=== PATIENT | female | born 1990 | race American Indian/Alaskan Native ===

== ENCOUNTER 2020-06-20 15:51 | Emergency (ER) | payer SELFPAY ==
[2020-06-20 17:40] VITALS: BP 130/74
--- NOTE | 2020-06-20 18:41 | Emergency Department Report ---
ED General Adult HPI - General Chief complaint: Extremity Problem,Nontraumatic Stated complaint: LUMP RT BREAST Time Seen by Provider: 06/20/20 18:32 Source: patient Mode of arrival: Ambulatory Limitations: No Limitations - History of Present Illness Initial comments: Patient is a 29-year-old female presents emergency room complaints of a lump to the right breast that began 8 or 9 days ago. She states that she just started using some clotrimazole ointment in the region. She denies any drainage, nipple drainage, fever, nausea, vomiting, diarrhea. She denies being bit by anything or any abrasions. She states that she does use an underwire bra. She denies any nipple bleeding. She states that she last saw an [facility] and October 2019 and was not having any issues at that time. No past medical history. No allergies to medications. She is not breast-feeding. - Related Data Previous Rx's Medication Instructions Recorded Last Taken Type Clotrimazole 1% [Lotrimin 1%] 1 applic TP BID #1 tube 06/20/20 Unknown Rx Doxycycline Hyclate [Doxycycline 100 mg PO BID 7 Days #14 tab 06/20/20 Unknown R x Hyclate TAB] Allergies Allergy/AdvReac Type Severity Reaction Status Date / Time shrimp Allergy Swelling Verified 06/20/20 17:35 sulfamethoxazole Allergy Unknown Verified 06/20/20 19:38 [From Bactrim] trimethoprim [From Bactrim] Allergy Unknown Verified 06/20/20 19:38 CRAB Allergy Swelling Uncoded 06/20/20 17:35 ED Review of Systems ROS: Stated complaint: LUMP RT BREAST Other details as noted in HPI Comment: All other systems reviewed and negative ED Past Medical Hx - Past Medical History Hx Asthma: Yes - Surgical History Additional Surgical History: C SECTION - Medications Home Medications: Home Medications Medication Instructions Recorded Confirmed Last Taken Type Clotrimazole 1% [Lotrimin 1%] 1 applic TP BID #1 tube 06/20/20 Unknown Rx Doxycycline Hyclate [Doxycycline 100 mg PO BID 7 Days #14 tab 06/20/20 Unknown Rx Hyclate TAB] ED Physical Exam - General Limitations: No Limitations General appearance: alert, in no apparent distress - Head Head exam: Present: atraumatic, normocephalic - Eye Eye exam: Present: normal appearance - ENT ENT exam: Present: mucous membranes moist - Respiratory Respiratory exam: Absent: respiratory distress, accessory muscle use - Neurological Exam Neurological exam: Present: alert, oriented X3 - Psychiatric Psychiatric exam: Present: normal affect, normal mood - Skin Skin exam: Present: warm, dry, other (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 She states that she just started using some clotrimazole ointment in the region. She denies any drainage, nipple drainage, fever, nausea, vomiting, diarrhea. She denies being bit by anything or any abrasions. She states that she does use an underwire bra. She denies any nipple bleeding. She states that she last saw an [facility] and October 2019 and was not having any issues at that time. No past medical history. No allergies to medications. She is not breast-feeding. Vitals are stable. 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 Examination appears consistent with a skin cellulitis, could also have fungal infection present in the bra line. No signs of breast abscess or mastitis. Patient given prescription for clotrimazole ointment and doxycycline. Advised patient Please use medication as prescribed. Please avoid wearing bras until this area has healed. Once area has healed please make sure you are wearing the right fitting bra to avoid any friction or discomfort in that area. avoid moisture in this region. Follow-up with a primary care doctor. Follow-up with [facility]. Return to emergency room for any worsening symptoms. Critical care attestation.: If time is entered above; I have spent that time in minutes in the direct care of this critically ill patient, excluding procedure time. ED Disposition Clinical Impression: Cellulitis Qualifiers: Site of cellulitis: trunk Site of cellulitis of trunk: chest wall Qualified Code(s): L03.313 - Cellulitis of chest wall Disposition: DC- TO HOME OR SELFCARE Is pt being admited?: No Does the pt Need Aspirin: No Condition: Stable Instructions: Cellulitis, Adult Additional Instructions: Please use medication as prescribed. Please avoid wearing bras until this area has healed. Once area has healed please make sure you are wearing the right fitting bra to avoid any friction or discomfort in that area. avoid moisture in this region. Follow-up with a primary care doctor. Follow-up with [facility]. Return to emergency room for any worsening symptoms. Prescriptions: Doxycycline Hyclate [Doxycycline Hyclate TAB] 100 mg PO BID 7 Days #14 tab Clotrimazole 1% [Lotrimin 1%] 1 applic TP BID #1 tube Referrals: ANDIE ALDRICH MD [Staff Physician] - 3-5 Days [facility] [Provider Group] - 3-5 Days [facility] [Provider Group] - 3-5 Days [facility] [Provider Group] - 3-5 Days [facility] [Provider Group] - 3-5 Days Time of Disposition: 18:39 Print Language: MALIAN
== END 2020-06-20 19:51 | disposition home or self-care (01) ==
LOC: ED 15:51
DX: L03.313 Cellulitis of chest wall (principal); J45.909 Unspecified asthma, uncomplicated; Z91.013 Allergy to seafood; Z88.8 Allergy status to other drugs, medicaments and biological substances; Z88.2 Allergy status to sulfonamides; Z79.899 Other long term (current) drug therapy; Z98.890 Other specified postprocedural states
CPT/HCPCS: 99281

== ENCOUNTER 2020-09-18 16:12 | Emergency (ER) | payer MEDICAID ==
[2020-09-18 16:27] VITALS: BP 147/70
--- NOTE | 2020-09-18 19:04 | Emergency Department Report ---
ED Fall HPI - General Chief Complaint: Extremity Injury, Lower Stated Complaint: RT KNEE AND NECK INJURY Time Seen by Provider: 09/18/20 18:53 Source: patient Mode of arrival: Ambulatory - History of Present Illness Initial Comments: 30-year-old morbid obese -[place] female presents to the emergency room stating that she had a fall last Friday and landed on her back and hit her neck against the door. Patient states when states she had fallen in the open discard that she had that was healed from January follow-up. Patient denies any fever chills no nausea no vomiting. Patient does complain of back pain but denies any urinary incontinence. Patient denies any limitations. Been taking Tylenol ibuprofen and muscle relaxant. MD Complaint: fall Onset/Timin -: week(s) Fall From: standing Fall Witnessed: yes, by bystander Place Fall Occurred: work Loss of Consciousness: none Prolonged Down Time?: no Symptoms Prior to Fall: none Location: neck Location - Extremities: Left: Knee Severity scale (0 -10): 7 Quality: aching Context: tripped/slipped - Related Data Previous Rx's Medication Instructions Recorded Last Taken Type Clotrimazole 1% [Lotrimin 1%] 1 applic TP BID #1 tube 06/20/20 Unknown Rx Doxycycline Hyclate [Doxycycline 100 mg PO BID 7 Days #14 tab 06/20/20 Unknown Rx Hyclate TAB] Allergies Allergy/AdvReac Type Severity Reaction Status Date / Time shrimp Allergy Swelling Verified 06/20/20 17:35 sulfamethoxazole Allergy Unknown Verified 06/20/20 19:38 [From Bactrim] trimethoprim [From Bactrim] Allergy Unknown Verified 06/20/20 19:38 shellfish derived AdvReac Swelling Verified 09/18/20 16:28 CRAB Allergy Swelling Uncoded 06/20/20 17:35 ED Review of Systems ROS: Stated complaint: RT KNEE AND NECK INJURY Other details as noted in HPI Comment: All other systems reviewed and negative Constitutional: no symptoms reported Eyes: as per HPI ENT: as per HPI Respiratory: no symptoms reported Cardiovascular: as per HPI Musculoskeletal: back pain Skin: other (wound) Psychiatric: denies: anxiety, depression ED Past Medical Hx - Past Medical History Hx Asthma: Yes - Surgical History Additional Surgical History: C SECTION - Medications Home Medications: Home Medications Medication Instructions Recorded Confirmed Last Taken Type Clotrimazole 1% [Lotrimin 1%] 1 applic TP BID #1 tube 06/20/20 Unknown Rx Doxycycline Hyclate [Doxycycline 100 mg PO BID 7 Days #14 tab 06/20/20 Unknown Rx Hyclate TAB] ED Physical Exam - General Limitations: No Limitations General appearance: alert, in no apparent distress - Head Head exam: Present: atraumatic, normocephalic - Eye Eye exam: Present: normal appearance - ENT ENT exam: Present: mucous membranes moist - Neck Neck exam: Present: normal inspection, full ROM. Absent: tenderness - Cardiovascular Cardiovascular Exam: Present: regular rate - Extremities Exam Extremities exam: Present: normal inspection, full ROM - Neurological Exam Neurological exam: Present: alert, oriented X3, normal gait - Expanded Skin Exam Expanded Type of lesion: Present: other (Open wound) ED Course Vital Signs 09/18/20 16:27 Temperature 98.8 F Pulse Rate 92 H Respiratory 18 Rate Blood Pressure 147/70 [Right] O2 Sat by Pulse 100 Oximetry ED Medical Decision Making - Medical Decision Making 30-year-old morbid obese -[place] female presents to the emergency room stating that she had a fall last Friday and landed on her back and hit her neck against the door. Patient states when states she had fallen in the open discard that she had that was healed from January follow-up. Patient denies any fever chills no nausea no vomiting. Patient does complain of back pain but denies any urinary incontinence. Patient denies any limitations. Been taking Tylenol ibuprofen and muscle relaxant. Patient has no cervical tenderness full range of motion of neck no distracting injuries no loss of consciousness no alcohol on board. Patient continue with her Tylenol ibuprofen and muscle relaxant to follow-up with a primary care provider. Critical care attestation.: If time is entered above; I have spent that time in minutes in the direct care of this critically ill patient, excluding procedure time. ED Disposition Clinical Impression: Fall with injury Qualifiers: Encounter type: initial encounter Qualified Code(s): W19.XXXA - Unspecified fall, initial encounter Open wound of knee Qualifiers: Encounter type: initial encounter Laterality: right Qualified Code(s): S81.001A - Unspecified open wound, right knee, initial encounter Disposition: TO HOME OR SELFCARE Is pt being admited?: No Does the pt Need Aspirin: No Condition: Stable Additional Instructions: Please keep your wound clean and dry. Follow-up at the wound care clinic. Continue with your Tylenol ibuprofen and muscle relaxant. Increase your fluid intake. Follow-up with your primary care provider. Referrals: [facility] [Outside] - 3-5 Days [facility] [Outside] - 3-5 Days [facility] [Outside] - 3-5 Days
== END 2020-09-18 21:00 | disposition home or self-care (01) ==
LOC: ED 16:12
DX: S81.001A Unspecified open wound, right knee, initial encounter (principal); J45.909 Unspecified asthma, uncomplicated; Z79.899 Other long term (current) drug therapy; Z91.013 Allergy to seafood; Z88.2 Allergy status to sulfonamides; Z98.890 Other specified postprocedural states; W18.30XA Fall on same level, unspecified, initial encounter; Y93.89 Activity, other specified; Y92.89 Other specified places as the place of occurrence of the external cause; Y99.0 Civilian activity done for income or pay
CPT/HCPCS: 99282

== ENCOUNTER 2021-12-20 17:18 | Emergency (ER) | payer MEDICAID ==
--- NOTE | 2021-12-20 21:48 | Vascular Lab Report ---
DUPLEX DOPPLER LOWER EXTREMITY VEINS, LEFT INDICATION / CLINICAL INFORMATION: LLE swelling pain/swelling. TECHNIQUE: Duplex doppler imaging was performed through the veins of the left lower extremity using v enous compression and other maneuvers. COMPARISON: None available. FINDINGS: LEFT COMMON FEMORAL VEIN: Negative. LEFT FEMORAL VEIN: Negative. LEFT POPLITEAL VEIN: Negative. LEFT CALF VEINS: Negative. ADDITIONAL FINDINGS: None. IMPRESSION: 1. No sonographic evidence for DVT in the left lower extremity. Signer Name: Hector York MD Signed: 12/20/2021 9:44 PM Workstation Name: [id number]
[2021-12-20] MEDS ORDERED: AMPICILLIN/SULBACTA 1.5GM/50ML 1.5 GM/50 ML BAG IV ONE (22:00)
--- NOTE | 2021-12-20 22:09 | XRay Report ---
LEFT TIBIA-FIBULA 2 VIEW(S) INDICATION / CLINICAL INFORMATION: LLE pain/swelling COMPARISON: None available. FINDINGS: BONES / JOINT(S): No acute fracture or subluxation. No significant arthritis. SOFT TISSUES: There is stranding in the subcutaneous fat consistent with edema. ADDITIONAL FINDINGS: None. Signer Name: Hector York MD Signed: 12/20/2021 10:05 PM Workstation Name: [id number]
[2021-12-20 22:42] LABS: Basophils % (Auto) 0.6 % (0.0-1.8); Eosinophils # (Auto) 0.1 K/mm3 (0.0-0.4); Hematocrit 36.9 % (30.3-42.9); Hemoglobin 12.3 gm/dl (10.1-14.3); Lymphocytes # (Auto) 2.7 K/mm3 (1.2-5.4); Lymphocytes % (Auto) 48.6 % (13.4-35.0); Mean Corpuscular HGB Conc 33 % (30-34); Mean Corpuscular Volume 89 fl (79-97); Monocytes # (Auto) 0.5 K/mm3 (0.0-0.8); Monocytes % (Auto) 8.8 % (0.0-7.3); Platelet Count 228 K/mm3 (140-440); Red Blood Count 4.13 M/mm3 (3.65-5.03); Red Cell Distribution Width 13.5 % (13.2-15.2)
[2021-12-20 23:00] LABS: Blood Urea Nitrogen 7 mg/dL (7-17); Hemolysis Index 6
[2021-12-20 23:06] LABS: BUN/Creatinine Ratio 14
--- NOTE | 2021-12-21 00:35 | Emergency Department Report ---
HPI - General Chief Complaint: Extremity Injury, Lower PUI?: No Time Seen by Provider: 12/20/21 20:14 - HPI HPI: This is a 31-year-old morbidly obese female presents for evaluation of 1 week of left lower extremity redness pain warmth and swelling. Patient reports she has had "chronic problems with my leg ever since I inserted in 2010. I did never broke anything but since then it has been getting swollen off and on." She re ports that she recalls being bitten by mosquitoes a week ago and scratching her legs. Since then her leg has been becoming red swollen and the pain radiates from her foot up to her thigh. She denies any recent prolonged travel history or immobilization. No tingling numbness in her arms or legs. No nausea vomiting fevers or chills or body aches. She states she had a scheduled appoint with her primary care doctor on today but "the address I entered to [facility] was different from the my doctor's address and so I was taken to the wrong place and I could make my appointment." Patient states she has a confirmed follow-up appointment with her primary care doctor on next week Friday, December 26, 2021. She does not take any medication at home for pain. Pain currently 8 out of 10. ED Past Medical Hx - Past Medical History Previous Medical History?: Yes Hx Asthma: Yes - Surgical History Additional Surgical History: C SECTION - Medications Home Medications: Home Medications Medication Instructions Recorded Confirmed Last Taken Type Clotrimazole 1% [Lotrimin 1%] 1 applic TP BID #1 tube 06/20/20 Unknown Rx Doxycycline Hyclate [Doxycycline 100 mg PO BID 7 Days #14 tab 06/20/20 Unknown Rx Hyclate TAB] Clindamycin [Clindamycin CAP] 300 mg PO Q6H 10 Days #40 cap 12/21/21 Unknown Rx Ibuprofen [Motrin 800 MG tab] 800 mg PO Q8HR PRN 7 Days #21 12/21/21 Unknown Rx tablet ED Review of Systems ROS: Stated complaint: LEG SWOLLEN Other details as noted in HPI Remainder of review of systems negative Comment: All other systems reviewed and negative Physical Exam - Physical Exam Vital Signs: Vital Signs 12/20/21 18:59 Temperature 98.2 F Pulse Rate 83 Respiratory 16 Rate Blood Pressure 151/76 [Left] O2 Sat by Pulse 99 Oximetry General: Gen: pt is well appearing, no acute distress, patient observed looking on her personal cellular telephone, no acute distress HEENT: Normocephalic atraumatic pupils equally round and reactive to light extraocular muscles intact sclera anicteric Neck: Full range of motion, no midline spinal tenderness palpation, no JVD, no carotid bruits, no nuchal rigidity CVS: S1-S2 regular rate and rhythm with no gallops rubs or murmurs, chest wall nontender Pulmonary: Clear to auscultation bilaterally, no wheezes rales or rhonchi Abdomen: Soft nondistended nontender no guarding or rebound tenderness, no palpable deformities or step-offs, normal active bowel sounds, no hep atosplenomegaly, no pulsatile masses : Deferred Extremities: No cyanosis no clubbing no edema, intact distal peripheral pulses, of right lower extremity, left lower extremity has moderate edema, significant warmth, no abscesses, no palpable fluctuant masses, compartments of left lower extremity are soft, compressible, patient has intact DP PT popliteal pulses of left lower extremity, less than 2-second capillary refill of toes of left foot, no overt evidence of trauma or infection Integumentary: Skin normal, no petechia no purpura no abscess no lacerations no evidence of trauma no evidence of infection Neuro: Patient is awake alert and oriented to person place time situation, mentating well, cranial nerves II through XII intact, no focal neurodeficits, sensation grossly tact Psych: Calm cooperative, mood affect normal ED Course Vital Signs 12/20/21 18:59 Temperature 98.2 F Pulse Rate 83 Respiratory 16 Rate Blood Pressure 151/76 [Left] O2 Sat by Pulse 99 Oximetry - Reevaluation(s) Reevaluation #1: 12/21/21 00:55 Patient reassessed. She is comfortable and well-appearing, ED Medical Decision Making - Lab Data Result diagrams: 12/20/21 22:15 12/20/21 22:15 - Radiology Data Radiology results: report reviewed - Medical Decision Making 31-year-old morbidly obese female Critical care attestation.: If time is entered above; I have spent that time in minutes in the direct care of this critically ill patient, excluding procedure time. ED Disposition Clinical Impression: Left leg cellulitis Disposition: 01 HOME / SELF CARE / HOMELESS Is pt being admited?: No Condition: Stable Instructions: Cellulitis, Adult Additional Instructions: It is strongly advised that she apply cold or cold compresses to your right leg, for approximately 20 to 30 minutes, 2-3 times a day, for the next 10 days. Keep your leg elevated as often as possible. You are being placed on an antibiotic named clindamycin. Please take this as directed for the next 10 days. Follow-up with your primary care doctor on your scheduled appointment for next week Sunday, December 26, 2021. This is very important. Take [id number] ibuprofen, 800 mg by mouth every 6 hours, as needed for pain. Alternate ibuprofen with acetaminophen for additional pain management. Observe your symptoms very carefully. Return to the nearest emergency department soon as possible if you develop worsening pain, worsening swelling, any fever of 100.4 Fahrenheit or higher, dizziness or lightheadedness, or if any other new worrisome symptoms develop. Prescriptions: Clindamycin [Clindamycin CAP] 300 mg PO Q6H 10 Days #40 cap Ibuprofen [Motrin 800 MG tab] 800 mg PO Q8HR PRN 7 Days #21 tablet PRN Reason: Pain, Moderate (4-6) Referrals: PRIMARY CARE, [Primary Care Provider] - 3-5 Days
[2021-12-21] MEDS ORDERED: KETOROLAC 30 MG/1 ML INJ IV ONE (00:55)
[2021-12-21] MEDS ORDERED: methylPREDNISolone Sod Succinate 125 MG/2 ML INJ IV ONE (00:56)
[2021-12-21 01:46] VITALS: BP 137/81
== END 2021-12-21 01:39 | disposition home or self-care (01) ==
LOC: ED 17:18
DX: L03.116 Cellulitis of left lower limb (principal); J45.909 Unspecified asthma, uncomplicated
CPT/HCPCS: 36415; 73590; 80048; 85025; 87040; 93971; 96365; 96375; 99284; J0295; J1885; J2930